=== PATIENT | female | born 1965 | race Hispanic/Latino ===

== ENCOUNTER 2016-07-06 23:13 | Inpatient (IN) | payer OTHER ==
[~2016-07-06] VITALS: Ht 152.4 cm; Wt 61.1 kg
[2016-07-07] MEDS ORDERED: METOCLOPRAMIDE 10 MG/2 ML VIAL ONE (03:18)
[2016-07-07] MEDS ORDERED: DIPHENHYDRAMINE 50 MG/ML VIAL ONE (03:18)
[2016-07-07] MEDS: Atorvastatin 20 MG TAB PO SCH ×2 (04:00→23:06)
[2016-07-07] MEDS ORDERED: SALINE FLUSH 10 ML FLUSH PRN (04:00)
[2016-07-07] MEDS ORDERED: ACETAMINOPHEN 325 MG TAB PO PRN (04:00)
[2016-07-07] MEDS: SODIUM CHLORIDE 0.9% FLUSH BAG 500 ML IV SCH (06:00)
[2016-07-07 06:50] VITALS: BP_SYST 146; RESP 18; TEMP 97.5
[2016-07-07 06:51] VITALS: Ht 152.4 cm; Wt 61.1 kg
[2016-07-07] MEDS ORDERED: VALSARTAN PO SCH (11:30)
[2016-07-07] MEDS ORDERED: HCTZ PO SCH (11:30)
[2016-07-07 11:59] VITALS: BP_SYST 144; RESP 18; TEMP 98
[2016-07-07] MEDS: Aspirin 325 MG TAB PO SCH (12:22)
[2016-07-07] MEDS: VALSARTAN 80 MG TAB PO SCH (12:22)
[2016-07-07] MEDS: HCTZ 12.5 MG CAP PO SCH (12:22)
[2016-07-07] MEDS: SODIUM CHLORIDE 0.9% 1,000 ML IV SCH (12:22)
[2016-07-07] MEDS: SALINE FLUSH 10 ML FLUSH SCH ×2 (12:23→20:00)
[2016-07-07 15:50] VITALS: BP_SYST 145; RESP 18; TEMP 98
[2016-07-07 20:32] VITALS: BP_SYST 150; RESP 18; TEMP 98.3
[2016-07-07 23:48] VITALS: BP_SYST 180; RESP 18; TEMP 98.2
[2016-07-08] MEDS: lamoTRIgine 25 MG TAB PO SCH ×2 (01:47→08:16)
[2016-07-08 03:30] VITALS: BP_SYST 162; RESP 18; TEMP 97.7
[2016-07-08] MEDS: SODIUM CHLORIDE 0.9% FLUSH BAG 500 ML IV SCH (04:25)
[2016-07-08] MEDS: SODIUM CHLORIDE 0.9% 1,000 ML IV SCH (04:25)
[2016-07-08 06:44] VITALS: BP_SYST 162
[2016-07-08 07:52] VITALS: BP_SYST 168; RESP 18; TEMP 98
[2016-07-08] MEDS: VALSARTAN 80 MG TAB PO SCH (08:16)
[2016-07-08] MEDS: HCTZ 12.5 MG CAP PO SCH (08:17)
[2016-07-08] MEDS: Aspirin 325 MG TAB PO SCH (08:17)
[2016-07-08] MEDS: SALINE FLUSH 10 ML FLUSH SCH (08:17)
[2016-07-08 12:18] VITALS: BP_SYST 164; RESP 18; TEMP 97.7
[2016-07-08 13:58] VITALS: BP_SYST 164; RESP 18; TEMP 97.7
[2016-07-08 14:08] VITALS: BP_SYST 164; RESP 18; TEMP 97.7
== END 2016-07-08 15:00 | disposition home or self-care (01) | DRG 69 ==
LOC: ENRESERVDT → ENRESERVTM → ER 23:13 → ENPENDDIS 07-07 03:59 → EMR 07-07 03:59 → PCU2 07-07 06:41
PROVIDERS: ADMIT Family Medicine; ATTEND Family Medicine
CPT/HCPCS: 36415; 70450; 70551; 71020; 80053; 80061; 82553; 84484; 85025; 85610; 85730; 93005; 93306; 93880; 95819; 96374; 96375; 99222